=== PATIENT | male | born 1990 | race African-American/Black ===

== ENCOUNTER 2020-04-17 03:04 | Emergency (ER) | payer OTHER ==
[~2020-04-17] VITALS: Ht 195.6 cm; Wt 90.7 kg
[2020-04-17 03:05] VITALS: BP 139/98
[2020-04-17] MEDS ORDERED: predniSONE 50 MG TABLET PO ONE (04:00)
== END 2020-04-17 03:42 | disposition home or self-care (01) ==
LOC: ER 03:04
DX: T78.40XA Allergy, unspecified, initial encounter (principal); X58.XXXA Exposure to other specified factors, initial encounter

== ENCOUNTER 2020-12-27 22:01 | Emergency (ER) | payer OTHER ==
[~2020-12-27] VITALS: Ht 195.6 cm; Wt 89.4 kg
[2020-12-27 23:24] VITALS: BP 131/68
[2020-12-28] MEDS ORDERED: METH4TAB3 PO (00:15)
== END 2020-12-28 00:47 | disposition home or self-care (01) ==
LOC: ER 22:03
DX: J02.9 Acute pharyngitis, unspecified (principal); F17.200 Nicotine dependence, unspecified, uncomplicated

== ENCOUNTER 2021-06-27 09:33 | Emergency (ER) | payer OTHER ==
[~2021-06-27] VITALS: Ht 195.6 cm; Wt 89.4 kg
[2021-06-27 09:33] VITALS: BP 131/87
[~2021-06-27 09:33] MED LIST: METH4TAB3 PO
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
--- NOTE | 2021-06-27 09:59 | NUR ---
Patient eloped from facility. Dr Donaldson notified.
[2021-06-28] MEDS ORDERED: IBUP-1957 PO (05:41)
== END 2021-06-27 10:02 | disposition left against medical advice (07) ==
LOC: ER 09:36
DX: Z53.21 Procedure and treatment not carried out due to patient leaving prior to being seen by health care provider (principal); M25.512 Pain in left shoulder

== ENCOUNTER 2021-06-28 03:46 | Emergency (ER) | payer OTHER ==
[~2021-06-28] VITALS: Ht 195.6 cm; Wt 89.4 kg
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
--- NOTE | 2021-06-28 05:11 | NUR ---
XRAY AT BEDSIDE
[2021-06-28] MEDS ORDERED: IBUPROFEN 600 MG TABLET ONE (05:40)
[2021-06-28] MEDS ORDERED: ACETAMINOPHEN ES 500 MG TABLET ONE (05:40)
[2021-06-28] MEDS ORDERED: IBUP-1957 PO (05:41)
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
--- NOTE | 2021-06-28 05:50 | NUR ---
Patient discharged to home in stable condition. Written and verbal after care instructions given. Patient verbalizes understanding of instruction. Pt ambulatory with a steady gait
[2021-06-28 05:55] VITALS: BP 125/73
[2021-06-28] MEDS ORDERED: ACETAMINOPHEN ES 500 MG TABLET PO ONE (06:00)
[2021-06-28] MEDS ORDERED: IBUPROFEN 600 MG TABLET PO ONE (06:00)
== END 2021-06-28 05:50 | disposition home or self-care (01) ==
LOC: ER 03:49
DX: S46.912A Strain of unspecified muscle, fascia and tendon at shoulder and upper arm level, left arm, initial encounter (principal); S20.212A Contusion of left front wall of thorax, initial encounter; Z79.899 Other long term (current) drug therapy; V87.8XXA Person injured in other specified noncollision transport accidents involving motor vehicle (traffic), initial encounter; Y93.89 Activity, other specified; Y92.89 Other specified places as the place of occurrence of the external cause; Y99.8 Other external cause status
CPT/HCPCS: 71100-TC; 73030-TC